=== PATIENT | male | born 1970 | race African-American/Black ===

== ENCOUNTER 2016-08-18 20:06 | Emergency (ER) | payer OTHER ==
[~2016-08-18] VITALS: Ht 180.3 cm; Wt 77.0 kg
[2016-08-18] MEDS ORDERED: KETOROLAC TROMETHAMINE 30 MG/ML VIAL IM ONE (22:30)
[2016-08-18 23:26] VITALS: BP 127/69
== END 2016-08-18 23:45 | disposition home or self-care (01) ==
LOC: EMS 20:13
DX: S52.501A Unspecified fracture of the lower end of right radius, initial encounter for closed fracture (principal); F17.210 Nicotine dependence, cigarettes, uncomplicated; F12.90 Cannabis use, unspecified, uncomplicated; V29.20XA Unspecified motorcycle rider injured in collision with unspecified motor vehicles in nontraffic accident, initial encounter; Y93.89 Activity, other specified; Y92.89 Other specified places as the place of occurrence of the external cause; Y99.8 Other external cause status
CPT/HCPCS: 29125; 73110; 73130; 96372; 99284; J1885

== ENCOUNTER 2016-08-28 22:00 | Emergency (ER) | payer OTHER ==
[~2016-08-28] VITALS: Ht 180.3 cm; Wt 72.7 kg
[2016-08-29 00:41] VITALS: BP 120/67
[2016-08-29] MEDS ORDERED: IBUPROFEN 800 MG TABLET PO ONE (01:00)
[2016-08-29] MEDS ORDERED: TraMADol HCL 50 MG TABLET PO ONE (01:00)
== END 2016-08-29 01:26 | disposition home or self-care (01) ==
LOC: EMS 22:02
DX: S52.501A Unspecified fracture of the lower end of right radius, initial encounter for closed fracture (principal); F31.9 Bipolar disorder, unspecified; F17.210 Nicotine dependence, cigarettes, uncomplicated; X58.XXXA Exposure to other specified factors, initial encounter; Y93.89 Activity, other specified; Y99.8 Other external cause status; Y92.89 Other specified places as the place of occurrence of the external cause
CPT/HCPCS: 99284; 99406

== ENCOUNTER 2016-09-03 15:44 | Emergency (ER) | payer OTHER ==
[~2016-09-03] VITALS: Ht 180.3 cm; Wt 77.3 kg
[2016-09-03] MEDS ORDERED: IBUP-1547 PO (15:57)
[2016-09-03 16:55] VITALS: BP 120/74
== END 2016-09-03 17:58 | disposition home or self-care (01) ==
LOC: EMS 15:52
DX: S52.501D Unspecified fracture of the lower end of right radius, subsequent encounter for closed fracture with routine healing (principal); F17.210 Nicotine dependence, cigarettes, uncomplicated; F31.9 Bipolar disorder, unspecified; F20.9 Schizophrenia, unspecified; F12.10 Cannabis abuse, uncomplicated; X58.XXXD Exposure to other specified factors, subsequent encounter
CPT/HCPCS: 99283